=== PATIENT | male | born 1985 ===

== ENCOUNTER 2025-04-12 11:18 | Emergency (ER) | payer OTHER, SELFPAY ==
--- NOTE | ~2025-04-12 | XR_ITS ---
CLINICAL HISTORY: L low back pain after heavy lifting 3 views lumbar spine Comparison: None provided Findings: Normal alignment. No acute fractures or dislocation. No significant degenerative change. IMPRESSION: No acute findings. This document has been electronically signed by: Harshal Troy MD on 04/12/2025 11:57:38
[2025-04-12 11:23] VITALS: BP 127/71; PULSE 125; RESP 18; TEMP 36.3; O2SAT 99; BMI 30.8
--- NOTE | 2025-04-12 11:23 | ED_ITS ---
HPI - Back Pain/Injury General Chief Complaint: Back Pain/Injury Stated Complaint: sciatic pain from back to L leg Time Seen by Provider: 04/12/25 11:43 Source: patient Mode of arrival: ambulatory Limitations: no limitations History of Present Illness ED Provider: JAMIE Del Toro HPI Narrative: This is a 39-year-old male with no known medical history presenting to the emergency department complaints of left low back pain with radiation to left lower extremity posteriorly. Reports pain started about a week ago, he reports he was working he bent down and when he got back up he immediately started experiencing pain Pain is intermittent in nature, sharp, stabbing and very uncomfortable. Rates pain 8/10. Worse with various movements and range of motion better at rest. He has never had pain like this before. Denies saddle anesthesias, urinary/bowel incontinence/retention, fevers, chills, trauma. Related Data Previous Rx's ?Medication ?Instructions ?Recorded acetaminophen 325 mg tablet 650 mg (2 x 325 mg) PO Q6H PRN 04/12/25 (Tylenol) fever or pain #30 tabs gabapentin 300 mg capsule 300 mg PO BEDTIME #30 caps 0 04/12/25 ketorolac 10 mg tablet 10 mg PO TID PRN pain 5 days #15 04/12/25 tabs lidocaine 5 % topical patch 1 patch topical DAILY PRN pain #15 04/12/25 ea Allergies Allergy/AdvReac Type Severity Reaction Status Date / Time No Known Allergies Allergy Verified 04/12/25 11:27 Review of Systems Review of Systems: Yes all other systems are reviewed and are negative PMFSH Past Medical History Attestation statement: The following information was validated with the patient. Source: old records reviewed and nursing notes reviewed Social History Social History Advance Directives: No Advance Directives Information Provided: Yes Physical Exam Exam: Exam: Appearance: Alert.? Oriented X3.? No acute distress.? Head: Normocephalic, atraumatic, no step-offs or deformities Eyes: Pupils equal, round and reactive to light.? ENT: Pharynx normal.? Neck: Normal inspection.? Neck supple.? CVS: Normal heart rate and rhythm.? Pulses normal.? Respiratory: No respiratory distress.? Breath sounds normal.? Abdomen: Soft and nontender.? Skin: Skin warm and dry.? Normal skin color.? Normal skin turgor.? Extremities: No lower extremity edema.? No calf ttp. 5/5 strength to bilateral upper and lower extremities Back: No midline tenderness, no C-spine tenderness, full range of motion, no CV A tenderness bilaterally+ tenderness to lumbar paraspinous muscles of to lumbar region bilaterally. Positive straight leg raise on the left Neuro: Oriented X 3.? No motor deficit.? No sensory deficit. CN 2-12 intact . No saddle anesthesias. Ambulating with steady gait normal coordination Vital Signs: Vital Signs: Last Vital Signs Temp 97.4 F 04/12/25 11:23 Pulse 125 H 04/12/25 11:23 Resp 18 04/12/25 11:23 BP 127/71 04/12/25 11:23 Pulse Ox 99 04/12/25 11:23 O2 Del Method Room Air 04/12/25 11:23 BMI result Body Mass Index 30.8 Course Course Course Narrative: This is a Rapid Medical Examination (RME) performed by Clayton Akbar PA-C in located within [facility]. Full HPI, ROS, assessment and treatment plan per primary provider in the Main ED. Hx: 39 yo M here with back pain x1 week after bending over to lift something heavy at work. pain to left lower back w/ radiation to L thigh and knee. taking muscle relaxer and tylenol without improvement, last dose around 0700 today. denies any IVDU, spinal surgery. denies bowel/bladder incontinence/ retention. PE/vitals: uncomfortable appearing Plan: xrs Reevaluation(s) Reevaluation #1: Patient's x-ray unremarkable. He just received Toradol and Lidoderm patch will re-evaluate in around 30 minute Time: 12:06 Reevaluation #2: He is feeling better, he is ambulating around the department without difficulty. Still some discomfort. Will start him on gabapentin will give him 300 mg here explained to him he will take 300 mg at night daily. This medication should not be stopped abruptly. He should follow up with his PCP to continue this med. Time: 13:06 Medications Administered Discontinued Medications Generic Name Dose Route Start Last Admin Trade Name Freq PRN Reason Stop Dose Admin Ketorolac Tromethamine 30 mg 04/12/25 11:43 04/12/25 11:53 Ketorolac Tromethamine 30 Mg/Ml Vial IM 04/12/25 11:44 30 mg ONCE ONE Administration Lidocaine 1 patch 04/12/25 11:44 04/12/25 11:53 Lidocaine 4 % Patch Adh..Patch TRANSDERMA 04/12/25 11:45 1 patch ONCE ONE Administration Protocol Medical Decision Making Medical Decision Making [facility] Narrative: 1146 39-year-old male presents with low back pain with radiation to left lower extremity. Physical exam positive straight leg raise paraspinous tenderness to lumbar region bilaterally worse on the left. Ambulating with steady gait. History and physical exam consistent with L5-S1 radiculopathy. Unlikely cord compression, cauda equina, epidural abscess. Plan at this time pain control and x-ray which was ordered prior to me seeing patient. Differential Diagnosis Differential Diagnoses: The differential diagnosis associated with the presentation includes (History and physical exam consistent with L5-S1 radiculopathy. Unlikely cord compression, cauda equina, epidural abscess.) Admission/Observation Consideration of admission/observation: Escalation of care including admission/observation considered Independent Interpretation I performed an independent interpretation of an: Plain X-Ray Radiology Impression Discussion of test interpretation with radiology: I have reviewed the radiologist's reading. Critical Care Time Critical Care Time Critical Care Time: Yes Total Critical Care Time: 35 Attestation: I attest to this time spent taking care of the patient, obtaining history, physical, reviewing labs, imaging, treatment of patients condition +/- specialist/hospitalist consult +/- procedure Discharge Plan Discharge Clinical Impression: Lumbar radiculopathy Patient Disposition: Home, Self-Care Instructions: Lumbar Radiculopathy (ED), Back Pain (ED), Lower Back Exercises (ED) Additional Instructions: Take your medications as prescribed. If you were prescribed antibiotics today, it is important that you take your medication to their entirety, do not skip any doses, do not finish them early. Follow-up with your primary care provider this week. Return to the emergency department with new or worsening symptoms. Such as fevers, chills, chest pain, shortness of breath, nausea, vomiting, dizziness, headache, vision changes, lethargy In case of emergency call 911 Gabapentin has been sent to your pharmacy we gave you a dose in the department today. Do not repeated today. You can have 1 tomorrow at night. Take 1 pill daily at night, do not stop this medicine abruptly it can cause seizures or neurological issues. Please follow-up with your PCP to continue this med if they feel appropriate. You may need a referral to satellite specialist possibly [facility]. Please speak to your physician about this. Toradol has been sent to your pharmacy, you tolerated this well in the department. Please take this as prescribed do not take this with ibuprofen, or other NSAIDs, do not mix this with alcohol. Side effects of this medication including increased risk for bleeding and possible kidney injury. 3 views lumbar spine Comparison: None provided Findings: Normal alignment. No acute fractures or dislocation. No significant degenerative change. IMPRESSION: No acute findings. Prescriptions: New acetaminophen [Tylenol] 325 mg tablet 650 mg PO Q6H PRN (Reason: fever or pain) Qty: 30 0RF ketorolac 10 mg tablet 10 mg PO TID PRN (Reason: pain) 5 Days Qty: 15 0RF Rx Instructions: Tolerated IM or IV in department lidocaine 5 % adhesive patch,medicated 1 patch topical DAILY PRN (Reason: pain) Qty: 15 0RF Rx Instructions: leave on most painful area for up to 12 hrs gabapentin 300 mg capsule 300 mg PO BEDTIME Qty: 30 0RF Referrals: Physician,Unknown J [Primary Care Provider, Medical] Print Language: Bulgarian
[2025-04-12] MEDS: Lidocaine 4 % Patch ADH..PATCH 1 PATCH TRANSDERMA (11:53)
[2025-04-12 13:14] VITALS: BP 127/71; PULSE 125; RESP 18; TEMP 36.3; O2SAT 99
== END 2025-04-12 13:20 | disposition home or self-care (01) ==
PROVIDERS: Emergency Provider Emergency Medicine
DX: M54.16 Radiculopathy, lumbar region (principal); M54.50 Low back pain, unspecified
CPT/HCPCS: 72100; 96372; 99284; J1885

== ENCOUNTER → 2025-04-12 11:25 | Outpatient (BNV) | payer OTHER, SELFPAY | PROVIDERS: Emergency Provider Emergency Medicine; Visit Provider Radiology Vascular & Interventional Radiology | DX: M54.50 Low back pain, unspecified (principal) | CPT/HCPCS: 72100 ==